=== PATIENT | female | born 1995 | race Caucasian/White ===

== ENCOUNTER 2018-10-10 12:25 | Emergency (ER) | payer SELFPAY ==
[~2018-10-10] VITALS: Ht 162.6 cm; Wt 56.3 kg
[2018-10-10 13:51] LABS: *BARBITURATES SCREEN URINE NEGATIVE (NEGATIVE); *BENZODIAZEPINES SCREEN URINE NEGATIVE (NEGATIVE); *COCAINE SCREEN URINE NEGATIVE (NEGATIVE)
[2018-10-10 13:52] LABS: *AMPHETAMINES SCREEN URINE NEGATIVE (NEGATIVE); CANNABINOID URINE SCREEN NEGATIVE (NEGATIVE); METHADONE URINE SCREEN NEGATIVE (NEGATIVE); OPIATES URINE SCREEN NEGATIVE (NEGATIVE); PHENCYCLIDINE URINE SCREEN NEGATIVE (NEGATIVE)
[2018-10-10] MEDS ORDERED: DIPHENHYDRAMINE 50MG CAPSULE PO ONE (15:30)
[2018-10-10 18:33] VITALS: BP 128/68
== END 2018-10-10 18:37 | disposition home or self-care (01) ==
LOC: ER 13:48
DX: F32.9 Major depressive disorder, single episode, unspecified (principal); F41.9 Anxiety disorder, unspecified; F12.10 Cannabis abuse, uncomplicated; Z90.89 Acquired absence of other organs; Z98.890 Other specified postprocedural states; Z59.0 Homelessness
CPT/HCPCS: 80305; 99284; Q0163; Z7610